=== PATIENT | male | born 1970 | race African-American/Black ===

== ENCOUNTER 2017-08-10 14:43 | Emergency (ER) | payer MEDICAID, OTHER ==
[~2017-08-10] VITALS: Ht 170.2 cm; Wt 84.0 kg
[2017-08-10] MEDS ORDERED: KETOROLAC 60MG/2ML VIAL IM ONE (18:00)
[2017-08-10 18:08] VITALS: BP 131/78
== END 2017-08-10 18:22 | disposition home or self-care (01) ==
LOC: ER 16:50
DX: M79.1 Myalgia (principal); M54.9 Dorsalgia, unspecified; M54.2 Cervicalgia
CPT/HCPCS: 96372; 99283; J1885